=== PATIENT | female | born 1995 | race Caucasian/White ===

== ENCOUNTER 2017-11-30 01:10 | Emergency (ER) | payer OTHER ==
--- NOTE | 2017-11-30 01:20 | PDOC ---
Attending Attestation - Resident Resident Name: Ross Cornelius - ED Attending Attestation I have performed the following: I have examined & evaluated the patient, The case was reviewed & discussed with the resident, I agree w/resident's findings & plan, Exceptions are as noted - Physicial Exam PE: 11/30/17 02:45 Vitals: Triage Vital signs reviewed General Appearance: no acute distress, well nourished well developed, Head: Atraumatic, Eyes: Pupils equal reactive round, extraocular movement intact Throat: Posterior oropharynx without erythema, mucous membranes moist, Neck: Supple;No Nucal rigidity Chest Wall: Nontender Cardiac: Regular rate and rhythym, no murmurs, no rubs, no gallops, Lungs: Clear to auscultation bilateral, good air movement bilaterally, Abdomen: Soft, non distended, normal bowel sounds, non tender to palpation Extremities: Full range of motion to all extremities, no cyanosis, clubbing, or edema Skin: Warm and dry, no rashes or lesions, no rash, no petechiae Neuro: AOX3; Cranial Nerves 2-12 grossly intact, Strength intact to all extremities, Sensation intact to all extremities Psych: normal mood, normal affect - Medical Decision Making 11/30/17 02:44 Well-appearing no apparent distress history and examination consistent with URI complicated by headache Differential diagnosis includes strep throat, URI, influenza, very low suspicion for meningitis A physical examination there are no meningeal signs We'll treat headache with Reglan Benadryl acetaminophen for possible low-grade fever IV fluids allow patient to rest check labs and reassess Reevaluation 2:45 AM headache completely resolved patient sleeping comfortably asking to go home. Strep test negative labs pending Findings, the need for follow-up and strict return instructions discussed with patient. <Yuri Crowe - Last Filed: 11/30/17 02:44> - HPI HPI: 11/30/17 03:12 The patient is a 22 year old female with no significant PMH who presents to the emergency department with a headache, vomiting, and a fever (T. max 102F) beginning approximately 3 days ago. The patient denies chest pain or shortness of breath. He denies dizziness or weakness. Allergies: NKA PCP: Dr. Haji <Juan Manuel Naylor - Last Filed: 11/30/17 03:12>
[2017-11-30 01:21] VITALS: BP 120/60; PULSE 94; TEMP 98.4; BMI 22.0
[2017-11-30] MEDS ORDERED: METOCLOPRAMIDE HCL INJECTION 10 MG/2 ML VIAL IVPUSH ONE (01:31)
[2017-11-30] MEDS ORDERED: METOCLOPRAMIDE HCL INJECTION 10 MG/2 ML VIAL ONE ×2 (01:47→02:05)
[2017-11-30] MEDS ORDERED: ACETAMINOPHEN 1000 MG/100 ML VIAL (NON FORMULARY) IVPB ONE (01:51)
--- NOTE | 2017-11-30 01:51 | PDOC ---
History of Present Illness - General Chief Complaint: Headache Stated Complaint: VOMITING, FEVER Time Seen by Provider: 11/30/17 01:19 History Source: Patient Exam Limitations: No Limitations - History of Present Illness Initial Comments: 11/30/17 01:41 Dianne is a 22F with no significant medical history coming in today complaining of headache for the past three days. She states the headache onset insidiously with gradual worsening of her headache. The pain has been waxing and waning. The patient denies any stiffness in her neck, photophobia and sound sensitivity. Patient states that she has had fever, cough, sore throat and runny lose, last fever was yesterday. One episode of vomiting yesterday. LMP 1- 2 weeks ago. Denies chest pain, shortness of breath. Past History - Past Medical History Allergies/Adverse Reactions: Allergies Allergy/AdvReac Type Severity Reaction Status Date / Time No Known Allergies Allergy Verified 11/30/17 01:18 Home Medications: Ambulatory Orders Acetaminophen [Tylenol -] 500 mg PO Q6H 11/30/17 - Immunization History Immunization Up to Date: Yes - Suicide/Smoking/Psychosocial Hx Smoking History: Never smoked Have you smoked in the past 12 months: No Hx Alcohol Use: No Drug/Substance Use Hx: No Substance Use Type: None Review of Systems - Review of Systems Comments:: 11/30/17 02:32 GENERAL/CONSTITUTIONAL: Positive for fever or chills. No weakness. HEAD, EYES, EARS, NOSE AND THROAT: No change in vision. Positive for sore throat. CARDIOVASCULAR: No chest pain or shortness of breath RESPIRATORY: Positive for cough. Negative for wheezing, or hemoptysis. GASTROINTESTINAL: Positive for nausea, vomiting. Negative for diarrhea or constipation. GENITOURINARY: No dysuria, frequency, or change in urination. MUSCULOSKELETAL: No joint or muscle swelling or pain. No neck or back pain. SKIN: No rash NEUROLOGIC: Positive for headache. Negative for vertigo, loss of consciousness, or change in strength/sensation. HEMATOLOGIC/LYMPHATIC: No anemia, easy bleeding, or history of blood clots. ALLERGIC/IMMUNOLOGIC: No hives or skin allergy. *Physical Exam - Vital Signs Last Vital Signs Temp Pulse Resp BP Pulse Ox 98.4 F 94 H 18 120/60 100 11/30/17 01:19 11/30/17 01:19 11/30/17 01:19 11/30/17 01:19 11/30/17 01:19 - Physical Exam Comments: 11/30/17 02:34 GENERAL: Awake, alert, and fully oriented, in no acute distress HEAD: No signs of trauma, normocephalic, atraumatic EYES: PERRLA, EOMI, sclera anicteric, conjunctiva clear ENT: Auricles normal inspection, hearing grossly normal, nares patent, oropharynx clear without exudates. Moist mucosa NECK: Normal ROM, supple, no lymphadenopathy, JVD, or masses LUNGS: No distress, speaks full sentences, clear to auscultation bilaterally HEART: Regular rate and rhythm, normal S1 and S2, no murmurs, rubs or gallops, peripheral pulses normal and equal bilaterally. EXTREMITIES: Normal inspection, Normal range of motion, no edema. No clubbing or cyanosis. NEUROLOGICAL: Cranial nerves II through XII grossly intact. Normal speech, normal gait, no focal sensorimotor deficits, negative romberg SKIN: Warm, Dry, normal turgor, no rashes or lesions noted. ED Treatment Course - LABORATORY CBC & Chemistry Diagram: 11/30/17 01:46 11/30/17 01:46 Medical Decision Making - Medical Decision Making 11/30/17 02:34 Patient is a 22F with no significant medical history here today with headache. Vital signs stable and normal. History consistent with tension headache vs migraine. Subarachnoid hem and meningitis very unlikely based on history and exam. Will treat with fluids, reglan, benadryl. Will evaluate with upreg, cbc, cmp. Likely discharge. 11/30/17 02:50 Patients headache has resolved. Pending serum preg, cmp. 11/30/17 03:06 Laboratory Tests 11/30/17 11/30/17 11/30/17 01:46 01:46 01:46 WBC 7.0 Hgb 12.0 Hct 37.1 Plt Count 261 BUN 11 Creatinine 0.5 L Serum , Qual Negative CBC normal. CMP reassuring. Preg negative. Patient's headache remains improved, alert, ambulatory and expresses understanding at discharge. *DC/Admit/Observation/Transfer Diagnosis at time of Disposition: Headache - Discharge Dispostion Disposition: HOME Condition at time of disposition: Good Admit: No - Referrals Referrals: Micki Haji MD [Primary Care Provider] - - Patient Instructions Printed Discharge Instructions: DI for Headache Additional Instructions: Please follow up with your primary care provider this week. Please return if you have any new, worsening or concerning symptoms. - Post Discharge Activity Forms/Work/School Notes: Back to Work
[2017-11-30] MEDS ORDERED: ACETAMINOPHEN INJECTION 100 ML IVPB ONE (02:10)
[2017-11-30 02:13] LABS: HEMATOCRIT 37.1 % (32.4-45.2); MCH 28.9 pg (25.7-33.7); MCHC 32.5 g/dl (32.0-36.0); MEAN PLT VOLUME 8.6 fl (7.5-11.1); PLATELET COUNT 261 K/MM3 (134-434); RBC 4.17 M/mm3 (3.60-5.2); RDW 12.5 % (11.6-15.6)
[2017-11-30 02:55] LABS: ALBUMIN 3.7 g/dl (3.4-5.0); ANION GAP 8 (8-16); CALCIUM 8.3 mg/dL (8.5-10.1); CHLORIDE 105 mmol/L (98-107); CO2 26 mmol/L (21-32); CREATININE 0.5 mg/dL (0.55-1.02); GLUCOSE,RANDOM 74 mg/dL (74-106); SGPT/ALT 23 U/L (12-78); SODIUM 139 mmol/L (136-145)
[2017-11-30 02:57] LABS: ALK PHOS 72 U/L (45-117); BILIRUBIN,TOTAL 0.3 mg/dL (0.2-1.0); BLOOD UREA NITROGEN 11 mg/dL (7-18); POTASSIUM 3.9 mmol/L (3.5-5.1); SGOT/AST 16 U/L (15-37); TOT PROT 7.6 g/dl (6.4-8.2)
== END 2017-11-30 03:44 | disposition home or self-care (01) ==
LOC: JER 01:10
PROC: 3E033NZ Introduction of Analgesics, Hypnotics, Sedatives into Peripheral Vein, Percutaneous Approach (ICD-10-PCS; principal; 2017-11-30)
PROC: 3E033GC Introduction of Other Therapeutic Substance into Peripheral Vein, Percutaneous Approach (ICD-10-PCS; 2017-11-30)
PROC: 3E033GC Introduction of Other Therapeutic Substance into Peripheral Vein, Percutaneous Approach (ICD-10-PCS; 2017-11-30)
DX: R51 Headache (principal)
CPT/HCPCS: 36415; 80053; 84703; 85027; 87070; 87077; 87430; 96374; 96375; 99282-25; J0131

== ENCOUNTER 2018-03-11 08:23 | Emergency (ER) | payer OTHER ==
[2018-03-11 08:28] VITALS: BP 122/62; PULSE 89; TEMP 98.1; BMI 23.6
--- NOTE | 2018-03-11 08:46 | PDOC ---
History of Present Illness - General Chief Complaint: Nausea Stated Complaint: NAUSEA, HEADACHE Time Seen by Provider: 03/11/18 08:36 History Source: Patient Exam Limitations: No Limitations - History of Present Illness Initial Comments: 03/11/18 09:36 Patient is a 22-year-old female with no past medical history who presents to the emergency department today for nausea and headache for 3 days. Patient states that she threw up 3 days ago and was sent home from work. Since then she developed a headache. The headache gradually got worse over the last three days. States that the headache is worse with bright lights and sounds. Tried taking Tylenol and Motrin at home with no relief. Patient also states she feels like her headache is worse when she is driving. She's was wear corrective lenses but does not. Denies fevers, chills, sore throat, shortness of breath, gait changes, weakness , numbness and tingling, diplopia, visual changes. Past History - Travel Traveled outside of the country in the last 30 days: No Close contact w/someone who was outside of country & ill: No - Past Medical History Allergies/Adverse Reactions: Allergies Allergy/AdvReac Type Severity Reaction Status Date / Time No Known Allergies Allergy Verified 03/11/18 08:25 Home Medications: Ambulatory Orders NK [No Known Home Medication] 03/11/18 Anemia: Yes COPD: No - Immunization History Immunization Up to Date: Yes - Suicide/Smoking/Psychosocial Hx Smoking History: Never smoked Have you smoked in the past 12 months: No Hx Alcohol Use: No Drug/Substance Use Hx: No Substance Use Type: None Review of Systems - Review of Systems Able to Perform ROS?: Yes Comments:: 03/11/18 08:45 CONSTITUTIONAL: Absent: fever, chills, diaphoresis, generalized weakness, malaise, loss of appetite HEENT: Absent: rhinorrhea, nasal congestion, throat pain, throat swelling, difficulty swallowing, mouth swelling, ear pain, eye pain, visual Changes CARDIOVASCULAR: Absent: chest pain, loss of consciousness, palpitations, irregular heart rate, peripheral edema RESPIRATORY: Absent: cough, shortness of breath, dyspnea with exertion, orthopnea, wheezing, stridor, hemoptysis GASTROINTESTINAL: Present: nausea Absent: abdominal pain, abdominal distension, vomiting, diarrhea , constipation, melena, hematochezia MUSCULOSKELETAL: Absent: myalgia, arthralgia, joint swelling SKIN: Absent: rash, itching, pallor NEUROLOGIC: Present: headache Absent: focal weakness or paresthesias, dizziness, unsteady gait, seizure, mental status changes, bladder or bowel incontinence PSYCHIATRIC: Absent: anxiety, depression, suicidal or homicidal ideation, hallucinations. Is the patient limited Estonian proficient: No *Physical Exam - Vital Signs Last Vital Signs Temp Pulse Resp BP Pulse Ox 98.1 F 89 18 122/62 100 03/11/18 08:25 03/11/18 08:25 03/11/18 08:25 03/11/18 08:25 03/11/18 08:25 - Physical Exam Comments: 03/11/18 08:46 GENERAL: Well developed, well nourished. Awake and alert. No acute distress. HEENT: Normocephalic, atraumatic. PERRLA, EOMI. No conjunctival pallor. Sclera are non- icteric. Moist mucous membranes. Oropharynx is clear. NECK: Supple. Full ROM. No JVD. Carotid pulses 2+ and symmetric, without bruits. No thyromegaly. No lymphadenopathy. CARDIOVASCULAR: Regular rate and rhythm. No murmurs, rubs, or gallops. Distal pulses are 2+ and symmetric. PULMONARY: No evidence of respiratory distress. Lungs clear to auscultation bilaterally. No wheezing, rales or rhonchi. ABDOMINAL: Soft. Non-tender. Non-distended. No rebound or guarding. No organomegaly. Normoactive bowel sounds. MUSCULOSKELETAL Normal range of motion at all joints. No bony deformities or tenderness. No CVA tenderness. EXTREMITIES: No cyanosis. No clubbing. No edema. No calf tenderness. SKIN: Warm and dry. Normal capillary refill. No rashes. No jaundice. NEUROLOGICAL: Alert, awake, appropriate. Cranial nerves 2-12 intact. No deficits to light touch and temperature in face, upper extremities and lower extremities. No motor deficits in the in face, upper extremities and lower extremities. Normoreflexic in the upper and lower extremities. Normal speech. Toes are down- going bilaterally. Gait is normal without ataxia. PSYCHIATRIC: Cooperative. Good eye contact. Appropriate mood and affect. Medical Decision Making - Medical Decision Making 03/11/18 09:38 Patient is a 22-year-old female with no past medical history who presents to the emergency department with 3 days of headache. Neurologically intact, no gross neuro deficits. Vital signs are normal, patient is afebrile. Most likely migraine versus tension headache. Reglan and Benadryl given with relief of symptoms. We'll discharge home at this time. Patient is going to follow up with her primary care doctor this afternoon. Also told patient she should probably wear her glasses and/or have her vision checked by ophthalmology. Return precautions given. Patient understands all discharge instructions and all questions were answered. *DC/Admit/Observation/Transfer Diagnosis at time of Disposition: Headache - Discharge Dispostion Disposition: HOME Condition at time of disposition: Stable Decision to Admit order: No - Referrals Referrals: Kathy Gay MD [Primary Care Provider] - - Patient Instructions Printed Discharge Instructions: DI for Headache Additional Instructions: You have a headache. Please drink plenty of fluids, get plenty of rest. You may take Motrin 600 mg every 8 hours as needed for pain. Please wear corrective lenses. Please follow-up with her primary care doctor this week. Return to the emergency department if you have worsening headaches, fevers, chills, lightheadedness, or if you have any changes in your symptoms. - Post Discharge Activity Forms/Work/School Notes: Back to Work
[2018-03-11] MEDS ORDERED: METOCLOPRAMIDE HCL INJECTION 10 MG/2 ML VIAL IVPB ONE (09:06)
[2018-03-11] MEDS ORDERED: SODIUM CHLORIDE 1,000 ML IV STA (09:07)
[2018-03-11] MEDS ORDERED: METOCLOPRAMIDE HCL INJECTION 10 MG/2 ML VIAL ONE (09:07)
== END 2018-03-11 09:58 | disposition home or self-care (01) ==
LOC: JERFT 08:23
PROC: 3E033GC Introduction of Other Therapeutic Substance into Peripheral Vein, Percutaneous Approach (ICD-10-PCS; principal; 2018-03-11)
PROC: 3E0337Z Introduction of Electrolytic and Water Balance Substance into Peripheral Vein, Percutaneous Approach (ICD-10-PCS; 2018-03-11)
DX: R51 Headache (principal); D64.9 Anemia, unspecified
CPT/HCPCS: 84703; 99281-25; J7030

== ENCOUNTER 2019-11-07 01:25 | Emergency (ER) | payer OTHER ==
[2019-11-07 02:25] VITALS: BP 119/71; BMI 21.9
--- NOTE | 2019-11-07 02:54 | PDOC ---
History of Present Illness - General Chief Complaint: Headache Stated Complaint: FEVER,HEADACHE Time Seen by Provider: 11/07/19 02:05 - History of Present Illness Initial Comments: 11/07/19 03:29 Pt is a 24y/o female with no PMH who presents with 3 days myalgias and fever. She reports headache, dizziness, chills, rhinorrhea, sore throat, intermittent ear pain, cough with some yellowish sputum, and loss of appetite. She also reports left side chest and back pain with deep inspiration. She denies vomiting or diarrhea. No sick contacts. She did not receive the flu shot this season. Past History - Past Medical History Allergies/Adverse Reactions: Allergies Allergy/AdvReac Type Severity Reaction Status Date / Time No Known Allergies Allergy Verified 11/07/19 02:25 Home Medications: Ambulatory Orders NK [No Known Home Medication] 03/11/18 Anemia: Yes COPD: No - Immunization History Immunization Up to Date: Yes - Psycho Social/Smoking Cessation Hx Smoking History: Never smoked Have you smoked in the past 12 months: No Information on smoking cessation initiated: No Hx Alcohol Use: No Drug/Substance Use Hx: No Substance Use Type: None Review of Systems - Review of Systems Constitutional: Yes: Chills, Fever HEENTM: Yes: Nose Congestion, Throat Pain Respiratory: Yes: Cough. No: Shortness of Breath, Wheezing Cardiac (ROS): Yes: Chest Pain ABD/GI: Yes: Nausea. No: Vomiting : No: Dysuria Neurological: Yes: Headache, Dizziness *Physical Exam - Vital Signs Last Vital Signs Temp Pulse Resp BP Pulse Ox 102.8 F H 117 H 20 119/71 100 11/07/19 01:30 11/07/19 01:30 11/07/19 01:30 11/07/19 01:30 11/07/19 01:30 - Physical Exam General Appearance: Yes: Nourished, Appropriately Dressed. No: Apparent Distress HEENT: positive: EOMI, STEVE, Pharyngeal Erythema, Other (edematous tonsils). negative: Tonsillar Exudate Neck: positive: Trachea midline Respiratory/Chest: positive: Lungs Clear. negative: Rapid RR, Wheezing Cardiovascular: positive: Regular Rhythm, Tachycardia. negative: Murmur Gastrointestinal/Abdominal: positive: Normal Bowel Sounds. negative: Tender Neurologic: positive: Fully Oriented, Alert, Normal Mood/Affect ED Treatment Course - LABORATORY CBC & Chemistry Diagram: 11/07/19 02:59 11/07/19 02:59 Medical Decision Making - Medical Decision Making 11/07/19 03:36 Pt is a 24y/o female with no PMH who presents with 3 days myalgias and fever. She reports headache, dizziness, chills, rhinorrhea, sore throat, intermittent ear pain, cough with some yellowish sputum, and loss of appetite. She also reports left side chest and back pain with deep inspiration. She denies vomiting or diarrhea. No sick contacts. She did not receive the flu shot this season. ddx: viral syndrome, influenza orders: CBC, CMP, rapid flu, IV Tylenol, 1L NS, EKG 11/07/19 04:31 WBC 10.5 pt reports headache is improved, temp 101.8 will give motrin 400mg PO EKG sinus tachy HR [address] changes QTc 403 11/07/19 05:55 99.8 Pt reports feeling like fever is breaking and is doing better Discharge - Discharge Information Problems reviewed: Yes Clinical Impression/Diagnosis: Viral syndrome Condition: Improved Disposition: HOME - Follow up/Referral Referrals: Kathy Gay MD [Primary Care Provider] - - Patient Discharge Instructions Additional Instructions: You were seen in the emergency room for fever and body aches. You were diagnosed with a viral syndrome. You were given medication and fluids. You are feeling better and are able to go home. Follow up with your primary care doctor or return to the emergency room if your symptoms do not improve. For your fever and body aches, you can alternate acetaminophen (Tylenol) 650mg and ibuprofen 400mg every 3 hours. Do not take more than 4 grams of acetaminophen a day. For your sore throat, you may use throat lozenges like [place] throat drops. For cough, your can take Robitussin. - Post Discharge Activity Work/Back to School Note: Back to Work
[2019-11-07] MEDS ORDERED: ACETAMINOPHEN 1000 MG/100 ML VIAL (NON FORMULARY) IVPB ONE (02:55)
[2019-11-07] MEDS ORDERED: SODIUM CHLORIDE 1,000 ML IV STA (02:56)
[2019-11-07] MEDS ORDERED: ACETAMINOPHEN INJECTION 100 ML IVPB ONE (03:52)
[2019-11-07 04:06] LABS: BASO % 0.5 % (0-2.0); HEMOGLOBIN 12.5 GM/dL (10.7-15.3); MCH 28.9 pg (25.7-33.7); MEAN CELL VOLUME 87.5 fl (80-96); MEAN PLT VOLUME 8.9 fl (7.5-11.1); MONO % 10.6 % (3.8-10.2); NEUT % 73.9 % (42.8-82.8); PLATELET COUNT 200 K/MM3 (134-434); RBC 4.34 M/mm3 (3.60-5.2); RDW 13.8 % (11.6-15.6); WHITE BLOOD COUNT 10.5 K/mm3 (4.0-10.0)
[2019-11-07 04:24] LABS: ALBUMIN 3.7 g/dl (3.4-5.0); BILIRUBIN,TOTAL 0.3 mg/dL (0.2-1); BLOOD UREA NITROGEN 12.8 mg/dL (7-18); CALCIUM 8.8 mg/dL (8.5-10.1); CREATININE 0.8 mg/dL (0.55-1.3); POTASSIUM 3.9 mmol/L (3.5-5.1)
[2019-11-07] MEDS ORDERED: IBUPROFEN 400 MG TABLET (FP) PO ONE ×2 (04:43→04:57)
--- NOTE | 2019-11-07 05:53 | PDOC ---
Attending Attestation - HPI HPI: 11/07/19 05:51 24yoF no pmhx presents w/ 4d of viral syndrome - bodyaches, subj fevers, cough, congestion. taking motrin for symtoms without much relief. No other meds at home. - Physicial Exam PE: 11/07/19 05:52 nad, well appearing rrr ctabl soft ntnd A&O x 3 - Medical Decision Making 11/07/19 05:52 24yoF w/ viral syndrome and fever. - sxs control - Dispo
[2019-11-07 06:00] VITALS: PULSE 90; TEMP 99
--- NOTE | 2019-11-07 09:24 | EKG ---
Test Reason : Blood Pressure : / mmHG Vent. Rate : 116 BPM Atrial Rate : 116 BPM P-R Int : 144 ms QRS Dur : 082 ms QT Int : 290 ms P-R-T Axes : 017 032 038 degrees QTc Int : 403 ms SINUS TACHYCARDIA OTHERWISE NORMAL ECG WHEN COMPARED WITH ECG OF 27-SEP-2015 03:03, VENT. RATE HAS INCREASED BY 45 BPM Confirmed by Sekou Way MD ([id number]) on 11/07/2019 9:24:00 AM Referred By: Confirmed By:Sekou Way MD
== END 2019-11-07 05:59 | disposition home or self-care (01) ==
LOC: JER 01:25
PROC: 3E0337Z Introduction of Electrolytic and Water Balance Substance into Peripheral Vein, Percutaneous Approach (ICD-10-PCS; principal; 2019-11-07)
PROC: 3E033NZ Introduction of Analgesics, Hypnotics, Sedatives into Peripheral Vein, Percutaneous Approach (ICD-10-PCS; 2019-11-07)
DX: B34.9 Viral infection, unspecified (principal)
CPT/HCPCS: 36415; 80053; 85025; 87804; 93005; 93010; 96361; 96374; 99283-25; J0131; J7030

== ENCOUNTER 2019-11-10 00:15 | Emergency (ER) | payer OTHER ==
[2019-11-10 01:01] VITALS: BP 113/47; PULSE 100; TEMP 99.1; BMI 21.9
[2019-11-10] MEDS ORDERED: DEXAMETHASONE SOD PHOSPHATE 10 MG/1 ML VIAL ONE (02:18)
[2019-11-10] MEDS ORDERED: DEXAMETHASONE SOD PHOSPHATE 10 MG/1 ML VIAL IM ONE (02:23)
--- NOTE | 2019-11-10 02:45 | PDOC ---
History of Present Illness - General Chief Complaint: Sore Throat Stated Complaint: THROAT PAIN Time Seen by Provider: 11/10/19 02:02 History Source: Patient Exam Limitations: No Limitations - History of Present Illness Initial Comments: Jignesh is a 24 yo F who denies having any pmh who presents to the [facility] er with 5 days of a sore throat, white exudates, and severe throat pain. She states she was seen here in this ER a few days ago and discharged. They told her she had a viral syndrome. She returns today because her throat is in too much pain and she is scraed to eat or drink bc her throat hurts too much. She states it has become so bad that her voice is starting to become hoarse. Endorses body aches, fevers, and overall lousy feelings. She has multiple bumps in her neck which she says are hurting her. PCP: Veronika Haji PSH: None reported Allergies: None reported Social Hx: Denies smoking, drinking, or other substanxce abuse Past History - Past Medical History Allergies/Adverse Reactions: Allergies Allergy/AdvReac Type Severity Reaction Status Date / Time No Known Allergies Allergy Verified 11/10/19 00:43 Home Medications: Ambulatory Orders Acetaminophen [Tylenol] 650 mg PO PRN 11/10/19 Amoxicillin - [Amoxicillin 500mg Capsule -] 500 mg PO BID 10 Days #20 capsule Ibuprofen [Motrin -] 400 mg PO TID #21 tablet 11/10/19 Methylprednisolone [Medrol Dose Florencio] 4 mg PO ASDIR #21 tablet 11/10/19 Anemia: Yes COPD: No - Immunization History Immunization Up to Date: Yes - Psycho Social/Smoking Cessation Hx Smoking History: Never smoked Have you smoked in the past 12 months: No Information on smoking cessation initiated: No Hx Alcohol Use: No Drug/Substance Use Hx: No Substance Use Type: None Review of Systems - Review of Systems Able to Perform ROS?: Yes Comments:: CONSTITUTIONAL: Present: fever, chills Absent: no fatigue EYES: Absent: visual changes ENT: Present: Sore throat Absent: ear pain CARDIOVASCULAR: Absent: chest pain, no palpitations RESPIRATORY: Absent: cough, no SOB GI: Absent: abdominal pain, no nausea, no vomiting, no constipation, no diarrhea GENITOURINARY: Absent: dysuria, no frequency, no hematuria MUSKULOSKELETAL: Present: Myalgia Absent: back pain, no arthralgia SKIN: Absent: rash NEURO: Absent: headache *Physical Exam - Vital Signs Last Vital Signs Temp Pulse Resp BP Pulse Ox 99.1 F 100 H 20 113/47 L 97 11/10/19 00:25 11/10/19 00:25 11/10/19 00:25 11/10/19 00:25 11/10/19 00:25 - Physical Exam GENERAL: Well-appearing, well-nourished. Mild distress. HEENT: There is bilateral white exudates in the posterior oropharynx. There are b/l painful adenopathy in the patient's neck. Normocephalic, atraumatic. PERRL, EOM intact. CARDIOVASCULAR: Normal S1, S2. Regular rate and rhythm. PULMONARY: No evidence of respiratory distress. Lungs clear to auscultation bilaterally. No wheezing, rales or rhonchi. ABDOMEN: Soft, non-distended, non-tender. EXTREMITIES: Normal ROM in all four extremities. No gross deformities. SKIN: Warm, dry. No rash NEUROLOGICAL: No focal neurological deficits. ED Treatment Course - LABORATORY CBC & Chemistry Diagram: 11/10/19 02:45 11/10/19 02:45 - RADIOLOGY Radiology Studies Ordered: Category Date Time Status SOFT TISSUE NECK CT WITH CONTR [CT] Stat CT Scan 11/10/19 02:37 Ordered - Medications Given in the ED: ED Medications Discontinued Medications Generic Name Dose Route Start Last Admin Trade Name Freq PRN Reason Stop Dose Admin Dexamethasone Sodium Phosphate 10 mg 11/10/19 02:23 11/10/19 02:26 Decadron Injection - IM 11/10/19 02:24 10 mg ONCE ONE Administration Medical Decision Making - Medical Decision Making CLEARED FOR CONTRAST Jignesh is a 24 yo F who denies having any pmh who presents to the [facility] er with 5 days of a sore throat, white exudates, and severe throat pain. She states she was seen here in this ER a few days ago and discharged. They told her she had a viral syndrome. She returns today because her throat is in too much pain and she is scraed to eat or drink bc her throat hurts too much. She states it has become so bad that her voice is starting to become hoarse. Endorses body aches, fevers, and overall lousy feelings. She has multiple bumps in her neck which she says are hurting her. Vital Signs Temp Pulse Resp BP Pulse Ox 99.1 F 100 H 20 113/47 L 97 11/10/19 00:25 11/10/19 00:25 11/10/19 00:25 11/10/19 00:25 11/10/19 00:25 DDx IBNLT: Strep vs EBV vs HIV vs Retropharyngeal abscess vs peritonsillar abscess Plan: Labs, strep test, soft tissue neck CT, supportive care, abx, steroids, analgesia, re-assess. 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 Re-assessment: Patient eating and drinking at bedside after dex Disposition: Home with supportive care treatment and Abx - [facility] about negative HIV test and results for EBV Discharge - Discharge Information Problems reviewed: Yes Clinical Impression/Diagnosis: Sore throat Pharyngitis Qualifiers: Pharyngitis/tonsillitis etiology: unspecified etiology Qualified Code(s): J02.9 - Acute pharyngitis, unspecified Condition: Improved Disposition: HOME - Admission No - Additional Discharge Information Prescriptions: Amoxicillin - [Amoxicillin 500mg Capsule -] 500 mg PO BID 10 Days #20 capsule Ibuprofen [Motrin -] 400 mg PO TID #21 tablet Methylprednisolone [Medrol Dose Florencio] 4 mg PO ASDIR #21 tablet - Follow up/Referral Referrals: Micki Haji MD [Primary Care Provider] - - Patient Discharge Instructions Patient Printed Discharge Instructions: Sore Throat, Viral Pharyngitis, Strep Throat, Stacy-Vega Virus Test, DI for Pharyngitis/Tonsillopharyngitis -- Adult Additional Instructions: You came into the ER with a sore throat. We believe you have a bad throat infection. We gave you an antibiotic in the ER. 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 Come back to the ER with any new or worsening concerns. Thank you for coming to the [facility] ER. We hope you feel better soon! Print Language: WOLOF - Post Discharge Activity Work/Back to School Note: Back to Work
[2019-11-10] MEDS ORDERED: KETOROLAC TROMETHAMINE 30 MG/1 ML VIAL IVPUSH ONE (02:49)
[2019-11-10] MEDS ORDERED: SODIUM CHLORIDE 0.9% 500 ML INFUS.BAG IV ONE (02:49)
[2019-11-10 03:00] LABS: BASO % 0.2 % (0-2.0); EOS % 0.1 % (0-4.5); HEMATOCRIT 37.4 % (32.4-45.2); HEMOGLOBIN 12.3 GM/dL (10.7-15.3); LYMPH % 24.8 % (8-40); MCH 28.5 pg (25.7-33.7); MCHC 32.9 g/dl (32.0-36.0); MEAN CELL VOLUME 86.7 fl (80-96); MEAN PLT VOLUME 8.9 fl (7.5-11.1); MONO % 9.2 % (3.8-10.2); NEUT % 65.7 % (42.8-82.8); PLATELET COUNT 165 K/MM3 (134-434); RBC 4.31 M/mm3 (3.60-5.2); RDW 13.5 % (11.6-15.6); WHITE BLOOD COUNT 8.3 K/mm3 (4.0-10.0)
[2019-11-10] MEDS ORDERED: KETOROLAC TROMETHAMINE 30 MG/1 ML VIAL ONE (03:06)
[2019-11-10 03:28] LABS: ALBUMIN 3.3 g/dl (3.4-5.0); BILIRUBIN,TOTAL 0.4 mg/dL (0.2-1); BLOOD UREA NITROGEN 10.7 mg/dL (7-18); CALCIUM 8.9 mg/dL (8.5-10.1); CREATININE 0.7 mg/dL (0.55-1.3); POTASSIUM 4.1 mmol/L (3.5-5.1); TOT PROT 8.4 g/dl (6.4-8.2)
[2019-11-10] MEDS ORDERED: PENICILLIN G BENZATHINE 1,200,000 UNIT/2 ML PFS IM ONE ×2 (04:18→04:38)
--- NOTE | 2019-11-10 04:27 | PDOC ---
Attending Attestation - Resident Resident Name: García Amezquita - ED Attending Attestation I have performed the following: I have examined & evaluated the patient, The case was reviewed & discussed with the resident, I agree w/resident's findings & plan, Exceptions are as noted - HPI HPI: 11/16/19 20:24 See resident HPI - Physicial Exam PE: 11/16/19 20:24 Agree with documented exam - Medical Decision Making 11/16/19 20:24 2nd visit for persistent, painful pharyngitis, eval for possible complications including RPA, [employer] symptomatic tx, ct re-eval ct benign Significant improvement in symptoms after tx dc home
[2019-11-10] MEDS ORDERED: AMOXICILLIN 500 MG CAPSULE (FP) PO ONE (04:42)
== END 2019-11-10 04:55 | disposition home or self-care (01) ==
LOC: JER 00:15
PROC: 3E033GC Introduction of Other Therapeutic Substance into Peripheral Vein, Percutaneous Approach (ICD-10-PCS; principal; 2019-11-10)
PROC: 3E0333Z Introduction of Anti-inflammatory into Peripheral Vein, Percutaneous Approach (ICD-10-PCS; 2019-11-10)
DX: J02.9 Acute pharyngitis, unspecified (principal)
CPT/HCPCS: 36415; 70491-TC; 80053; 84703; 85025; 86308; 87070; 87389; 87880; 96372; 96375; 99282-25; J1100; Q9967